=== PATIENT | female | born 1985 | race Caucasian/White ===

== ENCOUNTER 2017-02-15 19:39 | Emergency (ER) | payer BC, OTHER ==
[~2017-02-15] VITALS: Ht 162.6 cm; Wt 60.7 kg
[~2017-02-15 19:39] MED LIST: CLC100X PO; FERR325T5 PO; MTRUNK; PRENTAB26 PO; TYLUNK
[2017-02-15 19:42] VITALS: TEMP 36.8; Ht 162.6 cm; Wt 60.7 kg
[2017-02-15] MEDS ORDERED: FAMOTIDINE 20MG/102 ML D5W IV STA (19:59)
[2017-02-15] MEDS ORDERED: ONDANSETRON INJ 2 MG/ML 2 ML VIAL IV STA (19:59)
[2017-02-15] MEDS ORDERED: SODIUM CHLORIDE 0.9% 1000ML 1,000 ML IV STA ×2 (19:59→20:06)
--- NOTE | 2017-02-15 20:12 | EMERGENCY ROOM VISIT NOTE ---
History Report prepared by Malu: Anni Booker Under the Supervision of: Dr. Brian Glez M.D. First contact with patient: 19:53 Chief Complaint: NAUSEA Stated Complaint: NAUSEA,DIARRHEA,DRY MUCUS [employer]ANES History of Present Illness The patient is a 31 year old female who presents to the Emergency Room with complaints of diarrhea beginning 5 days ago. She states that her diarrhea yesterday was black, but that today it was brown. The patient reports that she has been getting diarrhea every time she eats something and that she has lost 7 pounds. The patient states that she is normally constipated. The patient also reports having low-grade fevers and that she has been swallowing mucous. She also reports being nauseous and vomiting once. She denies burning with urination. The patient states that she has not gotten a flu shot yet. She denies a history of Crohn's disease and colitis. She reports having a history of hemorrhoids but that they have not been bleeding recently. She states that she does not believe that she is and that her last normal menstrual period was 3 weeks ago. She reports that she is sexually active but denies any concerns for STD's. The patient states that she has recently started a new job and that it has been stressful. Source of History: patient Onset: 5 days ago Position: other (global) Quality: other (diarrhea) Associated Symptoms: + fevers, + nausea, + vomiting, No urinary symptoms Note: additional symptom: white vaginal discharge Review of Systems See HPI for pertinent positives and negatives. A total of ten systems were reviewed and were otherwise negative. Past Medical & Surgical Medical Problems: (1) No active medical problems Surgical Problems: (1) Previous section Family History Cancer Diabetes mellitus Gallbladder disease Heart disease Hypertension Kidney disease Lung disease Social History Smoking Status: Never Smoker Marital Status: Housing Status: lives with significant other Occupation Status: employed Current/Historical Medications Scheduled Control Pills ( Control Pills), 1 TAB PO DAILY Cyclobenzaprine Hcl (Flexeril), 5 MG PO HS Escitalopram (Lexapro), 10 MG PO DAILY Famotidine (Pepcid), 20 MG PO BID Meloxicam (Mobic), 15 MG PO DAILY Omeprazole (Prilosec), 20 MG PO DAILY Ondasetron Odt (Zofran Odt), 4 MG SL Q6H Allergies Coded Allergies: No Known Allergies (Unverified , 02/15/17) Physical Exam Vital Signs Date Time Temp Pulse Resp B/P (MAP) Pulse Ox O2 Delivery O2 Flow Rate FiO2 02/15/17 22:35 76 20 105/74 98 Room Air 02/15/17 21:34 75 20 105/74 98 Room Air 02/15/17 21:25 72 02/15/17 19:42 36.8 99 16 138/100 98 Room Air Physical Exam GENERAL: Awake, alert, well-appearing, in no distress HENT: Normocephalic, atraumatic. Oropharynx unremarkable. Dry mucous membranes. EYES: Normal conjunctiva. Sclera non-icteric. NECK: Supple. No nuchal rigidity. FROM. No JVD. RESPIRATORY: Clear to auscultation. CARDIAC: Regular rate, normal rhythm. Extremities warm and well perfused. Pulses equal. ABDOMEN: Soft, non-distended. No tenderness to palpation. No rebound or guarding. No masses. RECTAL: No stool in vault. No blood. MUSCULOSKELETAL: Chest examination reveals no tenderness. The back is symmetrical on inspection without obvious abnormality. There is no CVA tenderness to palpation. No joint edema. LOWER EXTREMITIES: Calves are equal size bilaterally and non-tender. No edema. No discoloration. NEURO: Normal sensorium. No sensory or motor deficits noted. SKIN: No rash or jaundice noted. Medical Decision & Procedures Laboratory Results 02/15/17 20:20 Red Blood Count 5.05, Mean Corpuscular Volume 77.8, Mean Corpuscular Hemoglobin 26.7, Mean Corpuscular Hemoglobin Concent 34.4, Mean Platelet Volume 10.2, Neutrophils (%) (Auto) 39.3, Lymphocytes (%) (Auto) 47.5, Monocytes (%) (Auto) 9.7, Eosinophils (%) (Auto) 2.4, Basophils (%) (Auto) 1.1, Neutrophils # (Auto) 1.78, Lymphocytes # (Auto) 2.15, Monocytes # (Auto) 0.44, Eosinophils # (Auto) 0.11, Basophils # (Auto) 0.05 02/15/17 20:20 Test 02/15/17 20:20 02/15/17 20:22 02/15/17 21:30 White Blood Count 4.53 K/uL (4.8-10.8) Red Blood Count 5.05 M/uL (4.2-5.4) Hemoglobin 13.5 g/dL (12.0-16.0) Hematocrit 39.3 % (37-47) Mean Corpuscular Volume 77.8 fL (80-100) Mean Corpuscular Hemoglobin 26.7 pg (25-34) Mean Corpuscular Hemoglobin Concent 34.4 g/dl (32-36) Platelet Count 221 K/uL (130-400) Mean Platelet Volume 10.2 fL (7.4-10.4) Neutrophils (%) (Auto) 39.3 % Lymphocytes (%) (Auto) 47.5 % Monocytes (%) (Auto) 9.7 % Eosinophils (%) (Auto) 2.4 % Basophils (%) (Auto) 1.1 % Neutrophils # (Auto) 1.78 K/uL (1.4-6.5) Lymphocytes # (Auto) 2.15 K/uL (1.2-3.4) Monocytes # (Auto) 0.44 K/uL (0.11-0.59) Eosinophils # (Auto) 0.11 K/uL (0-0.5) Basophils # (Auto) 0.05 K/uL (0-0.2) RDW Standard Deviation 36.8 fL (36.4-46.3) RDW Coefficient of Variation 13.0 % (11.5-14.5) Immature Granulocyte % (Auto) 0.0 % Immature Granulocyte # (Auto) 0.00 K/uL (0.00-0.02) Anion Gap 7.0 mmol/L (3-11) Est Creatinine Clear Calc Drug Dose 81.5 ml/min Estimated GFR () 102.9 Estimated GFR (Non- 88.8 BUN/Creatinine Ratio 10.0 (10-20) Calcium Level 8.5 mg/dl (8.5-10.1) Total Bilirubin 0.4 mg/dl (0.2-1) Direct Bilirubin 0.1 mg/dl (0-0.2) Aspartate Amino Transf (AST/SGOT) 26 U/L (15-37) Alanine Aminotransferase (ALT/SGPT) 28 U/L (12-78) Alkaline Phosphatase 93 U/L (45-117) Total Protein 7.1 gm/dl (6.4-8.2) Albumin 3.2 gm/dl (3.4-5.0) Lipase 136 U/L (73-393) Influenza Type A Antigen Neg for Influ A (NEG) Influenza Type B Antigen Neg for Influ B (NEG) Urine Color DK YELLOW Urine Appearance CLEAR (CLEAR) Urine pH 5.0 (4.5-7.5) Urine Specific Stephens 1.028 (1.000-1.030) Urine Protein TRACE (NEG) Urine Glucose (UA) NEG (NEG) Urine Ketones TRACE (NEG) Urine Occult Blood NEG (NEG) Urine Nitrite NEG (NEG) Urine Bilirubin NEG (NEG) Urine Urobilinogen NEG (NEG) Urine Leukocyte Esterase NEG (NEG) Urine WBC (Auto) 1-5 /hpf (0-5) Urine RBC (Auto) 0-4 /hpf (0-4) Urine Hyaline Casts (Auto) 1-5 /lpf (0-5) Urine Epithelial Cells (Auto) 20-30 /lpf (0-5) Urine Bacteria (Auto) NEG (NEG) Urine Test NEG (NEG) Laboratory results reviewed by me Medications Administered Medications (Trade) Dose Ordered Sig/Goldie Route Start Time Stop Time Status Last Admin Dose Admin Sodium Chloride 1,000 ml @ 999 mls/hr Q1H1M STAT IV 02/15/17 19:59 02/15/17 20:59 DC 02/15/17 20:30 999 MLS/HR Ondansetron HCl (Zofran Inj) 4 mg NOW STAT IV 02/15/17 19:59 02/15/17 20:03 DC 02/15/17 20:29 4 MG Famotidine (Pepcid 20mg/100 ml) 20 mg ONE STAT IV 02/15/17 19:59 02/15/17 20:03 DC 02/15/17 20:30 20 MG Sodium Chloride 1,000 ml @ 999 mls/hr Q1H1M STAT IV 02/15/17 20:06 02/15/17 21:06 DC 02/15/17 20:29 999 MLS/HR ED Course 1954: The patient was evaluated in room B11B. A complete history and physical exam was performed. 1958: Ordered Famotidine 20 mg IV, Zofran Inj 4 mg IV, Sodium Chloride 1,000 ml @ 999 mls/hr IV. 2005: Ordered Sodium Chloride 1,000 ml @ 999 mls/hr IV. 2199: I checked on the patient and updated her on her results. 2249: I reevaluated the patient. Discussed results and discharge instructions: She verbalized understanding and agreement. The patient is ready for discharge. Medical Decision I reviewed the patient's past medical history, medications, and the nursing notes as described above. Differentials include: gastroenteritis, gastritis, UTI, and pyelonephritis. The patient is a 31 yo woman who presents to the ED with diarrhea and dehydration per HPI. On arrival the patient is relatively well-appearing in NAD , AFVSS. Labs unremarkable. Abd soft, NT/ND. No indication for imaging a this time. Patient improved after IVF. Sx most c/w gastroenteritis. Findings and plan for follow-up d/w patient. Patient agreeable and d/c'd per discharge instructions. Medication Reconcilliation Current Medication List: was personally reviewed by me Blood Pressure Screening Patient's blood pressure: Normal blood pressure Impression Primary Impression: Gastroenteritis Additional Impression: Dehydration Scribe Attestation The scribe's documentation has been prepared under my direction and personally reviewed by me in its entirety. I confirm that the note above accurately reflects all work, treatment, procedures, and medical decision making performed by me. Departure Information Dispostion Home / Self-Care Prescriptions Famotidine (PEPCID) 20 Mg Tab 20 MG PO BID for 7 Days, #14 TAB Prov: Brian Glez M.D. 02/15/17 Ondasetron Odt (ZOFRAN ODT) 4 Mg Tab 4 MG SL Q6H for Nausea, #6 TAB Prov: Brian Glez M.D. 02/15/17 Referrals Yonatan Diana M.D.([facility]) (PCP) Forms HOME CARE DOCUMENTATION FORM, IMPORTANT VISIT INFORMATION Patient Instructions Dehydration, ED Diet Brat Expanded , ED Food Poison Or Gastroenteritis, My [facility] Additional Instructions Please follow up with your primary care physician in the next 1-3 days for re- evaluation. You likely have viral gastroenteritis that will take time to resolve. Otherwise, your exam and lab results did not show signs of an emergent condition at this time. Pepcid for acid reduction. Zofran for nausea as needed. Return to the emergency department for worsening symptoms as described in the accompanying instructions. Problem Qualifiers
[2017-02-15 20:34] LABS: BASO % 1.1 %; BASO ABS # 0.05 K/uL (0-0.2); COMPLETE YES; EOS % 2.4 %; HEMATOCRIT 39.3 % (37-47); LYMPH % 47.5 %; LYMPH ABS # 2.15 K/uL (1.2-3.4); MEAN CELL VOLUME 77.8 fL (80-100); MEAN CORPUSCULAR HEMOGLOBIN 26.7 pg (25-34); MEAN CORPUSCULAR HGB CONC 34.4 g/dl (32-36); MEAN PLATELET VOLUME 10.2 fL (7.4-10.4); MONO % 9.7 %; NEUT % 39.3 %; PLATELET COUNT 221 K/uL (130-400); RED BLOOD COUNT 5.05 M/uL (4.2-5.4); WHITE BLOOD COUNT 4.53 K/uL (4.8-10.8)
[2017-02-15] MEDS ORDERED: ESCI10TA17 PO (20:38)
[2017-02-15] MEDS ORDERED: CYCL10TA6 PO (20:38)
[2017-02-15] MEDS ORDERED: MELO15TA4 PO (20:38)
[2017-02-15] MEDS ORDERED: PRLSR20 PO (20:38)
[2017-02-15] MEDS ORDERED: BCPILLS PO (20:38)
[2017-02-15 21:07] LABS: CALCIUM 8.5 mg/dl (8.5-10.1); CREATININE 0.88 mg/dl (0.60-1.20); POTASSIUM 3.4 mmol/L (3.5-5.1)
[2017-02-15 21:57] LABS: MANUAL MICROSCOPIC REQUIRED? NO; REVIEW REQ? NO; URINE APPEARANCE CLEAR (CLEAR); URINE COLOR DK YELLOW; URINE EPITHELIAL CELL AUTO 20-30 /lpf (0-5); URINE NITRITE NEG (NEG); URINE SPECIFIC GRAVITY 1.028 (1.000-1.030); UROBILINOGEN NEG (NEG); ZZUR CULT IF INDIC CLEAN CATCH NO
[2017-02-15 21:59] LABS: URINE BILIRUBIN NEG (NEG)
[2017-02-15 22:35] VITALS: BP 105/74; PULSE 76; O2SAT 98
[2017-02-15] MEDS ORDERED: FAMO20TA9 PO (22:47)
[2017-02-15] MEDS ORDERED: ONDA4TAB10 SL (22:47)
== END 2017-02-15 23:00 | disposition home or self-care (01) ==
LOC: C.EDB 19:41 → MERGE 19:41 → C.EDB 23:00
DX: K52.9 Noninfective gastroenteritis and colitis, unspecified (principal); E86.0 Dehydration; Z83.3 Family history of diabetes mellitus; Z82.49 Family history of ischemic heart disease and other diseases of the circulatory system